=== PATIENT | male | born 1950 | race Asian ===

== ENCOUNTER 2016-12-02 14:52 | Emergency (ER) | payer OTHER ==
[~2016-12-02] VITALS: Ht 154.9 cm; Wt 59.0 kg
[~2016-12-02 14:52] MED LIST: AMIO200T PO; APIX5TAB PO; ASPI-496 PO; ASPI-621 PO; ATOR10TA PO; ATOR20TA PO; CHOL100018 PO; FAMO-79 PO; METO25TA35 PO; METO50TA82 PO; PRAS10TA4 PO; UBID100C11 PO
[2016-12-02 14:54] VITALS: BP 150/81
[2016-12-02] MEDS ORDERED: METHOCARBAMOL 750 MG TABLET ONE (15:33)
[2016-12-02] MEDS ORDERED: ACETAMINOPHEN 500 MG TABLET ONE (15:33)
[2016-12-02] MEDS ORDERED: METHOCARBAMOL 750 MG TABLET PO ONE (16:00)
[2016-12-02] MEDS ORDERED: ACETAMINOPHEN 500 MG TABLET PO ONE (16:00)
[2016-12-02] MEDS ORDERED: ACETAMINOPHEN 325 MG TABLET PO ONE (16:00)
== END 2016-12-02 16:55 | disposition home or self-care (01) ==
LOC: ED 16:40
DX: S39.012A Strain of muscle, fascia and tendon of lower back, initial encounter (principal); M62.830 Muscle spasm of back; I25.2 Old myocardial infarction; I25.10 Atherosclerotic heart disease of native coronary artery without angina pectoris; Z95.5 Presence of coronary angioplasty implant and graft; Z87.891 Personal history of nicotine dependence; X58.XXXA Exposure to other specified factors, initial encounter; Y93.89 Activity, other specified; Y99.8 Other external cause status; Y92.89 Other specified places as the place of occurrence of the external cause; I48.91 Unspecified atrial fibrillation
CPT/HCPCS: 99283

== ENCOUNTER → 2016-12-12 | Outpatient (CLI) | payer OTHER | END | disposition home or self-care (01) | LOC: CFH 11:15 | PROVIDERS: ATTEND Nurse Practitioner | DX: S33.110A Subluxation of L1/L2 lumbar vertebra, initial encounter (principal); M51.36 Other intervertebral disc degeneration, lumbar region; X58.XXXA Exposure to other specified factors, initial encounter; Y93.89 Activity, other specified; Y92.89 Other specified places as the place of occurrence of the external cause; Y99.8 Other external cause status | CPT/HCPCS: 72114 ==

== ENCOUNTER 2020-04-28 23:44 | Emergency (ER) | payer MEDICARE ==
[~2020-04-28] VITALS: Ht 154.9 cm; Wt 60.0 kg
[~2020-04-28 23:44] MED LIST changes: -ASPI-621 PO; +ASPI81TA45 PO; +CHOL100012 PO; -CHOL100018 PO; -UBID100C11 PO; +UBID100C41 PO
[2020-04-29] MEDS ORDERED: SODIUM CHLORIDE 0.9% 1,000ML IVBOLUS ONE
[2020-04-29] MEDS ORDERED: SODIUM CHLORIDE FLUSH 10ML SYR IVF ONE
[2020-04-29] MEDS ORDERED: ONDANSETRON 2MG/ML, 2ML IVPush ONE
[2020-04-29] MEDS ORDERED: ONDANSETRON 2MG/ML, 2ML ONE (00:04)
[2020-04-29] MEDS ORDERED: MORPHINE SULFATE 4 MG/ML, 1ML ONE ×2 (00:04→00:35)
[2020-04-29] MEDS: MORPHINE SULFATE 4 MG/ML, 1ML IVPush PRN ×2 (00:10→00:37)
[2020-04-29 00:20] LABS: BASOPHILS % (AUTO) 1 % (0-1); EOSINOPHILS % (AUTO) 1 % (1-7); LYMPHOCYTES % (AUTO) 12 % (22-44); MEAN CORPUSCULAR HEMOGLOBIN 31.8 pg (27.5-34.5); MEAN CORPUSCULAR HGB CONC 32.5 g/dL (33.2-36.2); MEAN PLATELET VOLUME 9.3 fL (7.4-10.4); MONOCYTES % (AUTO) 4 % (2-9); NEUTROPHILS % (AUTO) 82 % (42-75); PLATELET COUNT 165 x10^3/uL (130-400); RED BLOOD COUNT 4.73 x10^6/uL (4.38-5.82); RED CELL DISTRIBUTION WIDTH 13.4 % (9.4-14.8)
--- NOTE | 2020-04-29 00:23 | NUR ---
PT PRESENTS TO THE ER FOR RIGHT UPPER QUADRANT PAIN. PT HAD A DAY OF DARK URINE ABOUT 2 DAYS AGO STATES IT WAS CHOCOLATE IN COLOR HAD LAB WORK DONE THAT CAME BACK NORMAL AND THE ISSUE RESOLVED WITHOUT INTERVENTION. PT HAD 1 EPISODE OF VOMIT PRIOR TO MEDICATION. PT DISCONNECTED FROM MONITORS IN ORDER TO WALK AROUND FOR COMFORT PER PT REQUEST. FLUIDS HANGING ON IV POLE.
[2020-04-29 00:26] LABS: MD NO
[2020-04-29 00:32] LABS: ALBUMIN 3.6 g/dL (3.4-5.0); ANION GAP 6 mmol/L (5-15); CALCIUM 8.6 mg/dL (8.5-10.1); CHLORIDE 107 mmol/L (98-107)
[2020-04-29 00:36] LABS: ALANINE AMINOTRANSFERASE 29 U/L (12-78); ALKALINE PHOSPHATASE 92 U/L (45-117); BILIRUBIN,TOTAL 0.6 mg/dL (0.2-1.0)
[2020-04-29] MEDS ORDERED: KETOROLAC 30 MG/1 ML IVPush ONE (01:30)
[2020-04-29] MEDS ORDERED: KETOROLAC 30 MG/1 ML ONE (01:36)
--- NOTE | 2020-04-29 01:45 | NUR ---
PT LAYING IN [facility]. RESPIRATIONS EVEN AND UNLABORED.
[2020-04-29 02:12] LABS: MICROSCOPIC NOT IND
--- NOTE | 2020-04-29 03:00 | NUR ---
Report received from SONNY Pollard. Awaiting discharge papers.
[2020-04-29 04:13] VITALS: BP 122/85
--- NOTE | 2020-04-29 04:13 | NUR ---
Discharge instructions given. All questions and concerns addressed. Patient ambulatory with a steady gait. Belongings with patient.
== END 2020-04-29 04:16 | disposition home or self-care (01) ==
LOC: ED 04-29 02:45
DX: N13.2 Hydronephrosis with renal and ureteral calculous obstruction (principal); R10.11 Right upper quadrant pain; R10.31 Right lower quadrant pain; I10 Essential (primary) hypertension; I25.2 Old myocardial infarction; I48.91 Unspecified atrial fibrillation; I25.10 Atherosclerotic heart disease of native coronary artery without angina pectoris; E78.5 Hyperlipidemia, unspecified; E78.00 Pure hypercholesterolemia, unspecified; Z87.891 Personal history of nicotine dependence
CPT/HCPCS: 36415; 74176; 76700; 80053; 81003; 83690; 85025; 96361; 96374; 96375; 99285; J1885; J2270; J2405; J7030

== ENCOUNTER → 2021-02-07 | Outpatient (CLI) | payer MEDICARE | END | disposition home or self-care (01) | LOC: CFH 12:07 | PROVIDERS: ATTEND Nurse Practitioner Family | DX: I25.10 Atherosclerotic heart disease of native coronary artery without angina pectoris (principal); R06.02 Shortness of breath | CPT/HCPCS: 78452; 93017; A9502 ==